=== PATIENT | male | born 1940 | race Caucasian/White ===

== ENCOUNTER 2017-07-02 09:23 | Emergency (ER) | payer OTHER ==
[~2017-07-02] VITALS: Ht 175.3 cm; Wt 66.8 kg
[2017-07-02 09:24] VITALS: BP 148/77
[2017-07-02] MEDS ORDERED: DEXAMETHASONE 4 MG/ML, 1ML PO ONE (11:30)
== END 2017-07-02 12:35 | disposition home or self-care (01) ==
LOC: ED 12:25
DX: H70.001 Acute mastoiditis without complications, right ear (principal); J31.0 Chronic rhinitis
CPT/HCPCS: 76380; 99284